=== PATIENT | male | born 1990 | race Caucasian/White ===

== ENCOUNTER 2020-11-10 18:06 | Emergency (ER) | payer OTHER ==
[~2020-11-10] VITALS: Ht 172.7 cm; Wt 74.8 kg
[2020-11-10 18:26] VITALS: BP 129/76
[2020-11-10] MEDS ORDERED: IBUPROFEN 600 MG TAB PO ONE (18:35)
--- NOTE | 2020-11-10 19:00 | NUR ---
SEEN AND EXAMINED BY ERLIN.
[2020-11-10 19:18] LABS: BASOPHILS % (AUTO) 0.4 % (0.0-2.0); EOSINOPHILS # (AUTO) 0.1 K/uL (0-0.4); EOSINOPHILS % (AUTO) 1.3 % (0.0-4.0); HEMATOCRIT 42.6 % (36-52); HEMOGLOBIN 14.4 g/dL (12.0-18.0); LYMPHOCYTES # (AUTO) 2.8 K/uL (2.0-11.5); LYMPHOCYTES % (AUTO) 27.9 % (20.5-51.1); MEAN CORPUSCULAR HEMOGLOBIN 30 pg (27-31); MEAN CORPUSCULAR HGB CONC 34 g/dL (33-37); MONOCYTES # (AUTO) 0.6 K/uL (0.8-1.0); MONOCYTES % (AUTO) 6.3 % (1.7-9.3); NEUTROPHILS # (AUTO) 6.3 K/uL (1.8-7.7); NEUTROPHILS % (AUTO) 64.1 % (42.2-75.2); PLATELET COUNT (AUTO) 209 K/uL (140-450); RED BLOOD CELL COUNT(AUTO) 4.79 MIL/uL (4.20-6.10); RED CELL DISTRIBUTION WIDTH 13.5 % (11.6-13.7); WHITE BLOOD COUNT (AUTO) 9.9 K/uL (4.8-10.8)
--- NOTE | 2020-11-10 19:33 | NUR ---
VENESSA SWAB OBTAINED AND SENT TO LAB
[2020-11-10 19:37] LABS: ALBUMIN 4.1 g/dL (3.4-5.0); ANION GAP 9.5 (8-16); CARBON DIOXIDE 29.3 mmol/L (21-32); CREATININE 0.8 mg/dL (0.6-1.3); POTASSIUM 3.8 mmol/L (3.5-5.1); TOTAL BILIRUBIN 0.3 mg/dL (0.0-1.0)
[2020-11-10] MEDS ORDERED: IBUPROFEN 600 MG TAB ONE (20:23)
[2020-11-10] MEDS ORDERED: ATA25 PO (20:29)
[2020-11-10] MEDS ORDERED: MAG-27 PO (20:29)
--- NOTE | 2020-11-10 20:45 | NUR ---
ALL RESULTS BACK AND NOTED BY ERMD AND FOR D/C
[2020-11-10 20:50] VITALS: BP 129/76
--- NOTE | 2020-11-10 20:50 | NUR ---
Patient discharged with v/s stable. Written and verbal after care instructions given and explained. Patient alert, oriented and verbalized understanding of instructions. Ambulatory with steady gait. All questions addressed prior to discharge. ID band removed. Patient advised to follow up with PMD. Rx of ATARAX, MYLANTA given. Patient educated on indication of medication including possible reaction and side effects. Opportunity to ask questions provided and answered.
== END 2020-11-10 20:50 | disposition home or self-care (01) ==
LOC: MED 18:06
DX: R10.10 Upper abdominal pain, unspecified (principal); Z20.822 Contact with and (suspected) exposure to COVID-19; R07.9 Chest pain, unspecified; R11.0 Nausea; R42 Dizziness and giddiness; F41.9 Anxiety disorder, unspecified; Z79.899 Other long term (current) drug therapy
CPT/HCPCS: 36415; 71045; 80053; 83690; 85025; 99284

== ENCOUNTER 2022-12-03 19:33 | Emergency (ER) | payer MEDICAID, OTHER ==
[~2022-12-03] VITALS: Ht 172.7 cm; Wt 74.8 kg
[~2022-12-03 19:33] MED LIST: ATA25 PO; MAG-27 PO
[2022-12-03 19:50] VITALS: BP 115/73; PULSE 71; RESP 17; TEMP 97.7; O2SAT 98
[2022-12-03 20:30] VITALS: O2SAT 98
[2022-12-03] MEDS ORDERED: ACETAMINOPHEN EXTRA STRENGTH 500 MG TAB PO ONE (20:35)
[2022-12-03] MEDS ORDERED: KETOROLAC 30 MG/ML VIAL IM ONE (20:35)
[2022-12-03] MEDS ORDERED: METOCLOPRAMIDE 10 MG TAB PO ONE (20:35)
[2022-12-03] MEDS ORDERED: LORazepam 0.5 MG TAB PO ONE (21:35)
[2022-12-03] MEDS ORDERED: IBUP-2213 PO (22:00)
[2022-12-03] MEDS ORDERED: ACET-9234 PO (22:00)
[2022-12-03] MEDS ORDERED: MECL-303 PO (22:00)
== END 2022-12-03 22:19 | disposition home or self-care (01) ==
LOC: MED 19:33
DX: G44.209 Tension-type headache, unspecified, not intractable (principal); Z79.899 Other long term (current) drug therapy
CPT/HCPCS: 96372; 99284; J1885; J8597